=== PATIENT | female | born 1965 ===

== ENCOUNTER 2018-08-23 07:41 | Inpatient (IN) | payer OTHER ==
[2018-08-23] VITALS (18 sets, daily range): BP systolic 127–160; BP diastolic 74–90
[~2018-08-23] VITALS: Ht 168.9 cm; Wt 67.6 kg
[~2018-08-23 07:41] MED LIST: AMLODIPINE BES2.5 MG ORAL; ATORVASTATIN CA20 MG ORAL; Bacitracin 50000 Units Vial ONE; Bupivacaine w/Epi 0.5% 30ml Vial INJ ONE; Gelfoam Size TOPIC ONE; LORAZEPAM1 MG ORAL; PREMARIN0.625 MG ORAL; PROAIR HFA8.5 GM INH; SYNTHROID88 MCG ORAL; Thrombin 5000 units TOPIC ONE; ceFAZolin sod 1 GM in NS 55 ML IVPB ONE
[2018-08-23] MEDS ORDERED: NS Irrig 1000ml ONE (08:00)
[2018-08-23] MEDS ORDERED: Sterile Water Irrig 1000ml IRRIG ONE (08:00)
[2018-08-23] MEDS ORDERED: Midazolam 2mg/2ml Inj ONE (08:54)
[2018-08-23] MEDS ORDERED: Zemuron 50mg/5ml Inj IV ONE ×2 (08:57→10:24)
[2018-08-23] MEDS ORDERED: fentaNYL 100 mcg/2 mL IV ONE (09:07)
[2018-08-23] MEDS ORDERED: Morphine Sulfate 10mg/ml Inj ONE (09:08)
[2018-08-23] MEDS ORDERED: Propofol 200mg/20ml IV ONE (09:11)
[2018-08-23] MEDS ORDERED: Lidocaine 1% MPF 10mg/ml 5ml ONE (09:11)
--- NOTE | 2018-08-23 11:11 | Pre-Procedure Note/Attestation ---
Pre-Procedure Note/Attestation Complete Prior to Procedure Procedure Narrative: c456 acdf Indications for Procedure Pre-Operative Diagnosis: c456 discopathy with radiculopathy Attestation I attest that I discussed the nature of the procedure; its benefits; risks and complications; and alternatives (and the risks and benefits of such alternatives ), prior to the procedure, with the patient (or the patient's legal technical sales representative). I attest that, if there was a reasonable possibility of needing a blood transfusion, the patient (or the patient's legal technical sales representative) was given the [facility] standardized written summary, pursuant to the [place] Blood Safety Act ([place] Health and Safety Code # 1645, as amended). I attest that I re-evaluated the patient just prior to the surgery and that there has been no change in the patient's H&P, except as documented below: Martin Allen MD Aug 23, 2018 11:11
--- NOTE | 2018-08-23 11:12 | Brief Operative Note ---
Immediate Post Operative Note Operative Note Pre-op Diagnosis: c456 discopathy with radiculopathy Procedure: acdf partial corpectomy c456 Post-op Diagnosis: same as pre-op Findings: consistent w/pre-op dx studies Surgeon: pj [employer]or[employer] Consultant: lewis JHA Anesthesiologist: renee Anesthesia: general Specimen: none Complications: none Condition: stable Fluids: 800 Estimated Blood Loss: minimal Drains: none Implant(s) used?: Yes - 4web and rti plate Martin Allen MD Aug 23, 2018 11:12
[2018-08-23] MEDS ORDERED: Metoclopramide 10mg/2ml Inj IVP PRN (11:15)
[2018-08-23] MEDS ORDERED: Milk of Magnesia 30ml Ud ORAL PRN (11:15)
--- NOTE | 2018-08-23 11:25 | Immediate Post-Op Evaluation ---
Immediate Post-Op Evalulation Immediate Post-Op Evalulation Procedure: acdf Date of Evaluation: Aug 23, 2018 Time of Evaluation: 11:25 Nausea: No Vomiting: No Heriberto Dennison MD Aug 23, 2018 11:25
--- NOTE | 2018-08-23 11:26 | Anethesia Preoperative Eval ---
Anesthesia Pre-op PMH/ROS General Date of Evaluation: Aug 23, 2018 Time of Evaluation: 08:00 ASA Score: ASA 2 Mallampati Score Class I : Soft palate, uvula, fauces, pillars visible Class II: Soft palate, uvula, fauces visible Class III: Soft palate, base of uvula visible Class IV: Only hard plate visible Mallampati Classification: Class I Allergies: Coded Allergies: METAXALONE (Verified Allergy, Intermediate, swelling and tongue swells; skin redness, 08/22/18) MORPHINE (Verified Allergy, Intermediate, itching, 08/22/18) TRAMADOL (Verified Allergy, Intermediate, extremely dizzy; vomiting, ) ACETAMINOPHEN (Verified Allergy, Mild, itching, 08/22/18) Cultivated Oat Pollen (Verified Allergy, Mild, sinusitis, 08/22/18) HYDROCODONE (Verified Allergy, Mild, itching, 08/22/18) Patient NPO?: Yes NPO Date: Aug 22, 2018 NPO Time: 1900 Anesthesia Pre-op Phys. Exam Physician Exam Last Vital Signs Date Time Temp Pulse Resp B/P (MAP) Pulse Ox O2 Delivery O2 Flow Rate FiO2 08/23/18 08:39 Room Air 08/23/18 08:37 97.5 109 20 160/85 (110) 99 Gastrointestinal: S/NT/ND Airway Exam Mallampati Score: Class I Heriberto Dennison MD Aug 23, 2018 11:26
[2018-08-23] MEDS: fentaNYL 100 mcg/2 mL IV PRN ×2 (11:49→12:10)
--- NOTE | 2018-08-23 14:36 | Diagnostic Imaging Report ---
INDICATION: Pain, intraoperative TECHNIQUE: Intraoperative imaging Fluoroscopy time: 11.3 seconds Total dose: 0.79075 mGym2 Total number of images: 4 COMPARISON: None FINDINGS: Intraoperative images demonstrate surgical tool projected at level of the C5-6 disc. Subsequent images document anterior fusion and disc spacer placement at C4-5 and C5-6 IMPRESSION: Intraoperative imaging, as described
[2018-08-23] MEDS ORDERED: LORazepam 1mg tab ORAL PRN ×2 (15:15→19:00)
[2018-08-23] MEDS ORDERED: Chloraseptic Spray 20mL Bottle ORAL PRN (15:15)
[2018-08-23] MEDS ORDERED: Hydromorphone 0.5mg/0.5ml inj IVP PRN (15:15)
[2018-08-23] MEDS ORDERED: Albuterol 90mcg Inhaler 8gm INH PRN (15:15)
--- NOTE | 2018-08-23 16:15 | Operative Note - Dictated ---
DATE OF OPERATION: 08/23/2018 SURGEON: Martin Allen MD. RETAIL BANKING MANAGER: Emiliano Figueroa PA-C. ANESTHESIA: Heriberto Dennison M.D. ANESTHESIA TYPE: General endotracheal anesthesia. PREOPERATIVE DIAGNOSES: 1. Cervical discopathy, C4, C5, C6, and C7. 2. Foraminal stenosis maximally at C4-C5, C5-C6. POSTOPERATIVE DIAGNOSES: 1. Cervical discopathy, C4, C5, C6, and C7. 2. Foraminal stenosis maximally at C4-C5, C5-C6. PROCEDURE: 1. Wide and radical diskectomy C4-C5 and C5-C6. 2. Partial corpectomies and uncal vertebrectomies at C4-C5 and C5-C6. 3. Interbody fusion using 4WEB structural cage. 4. Use of Signafuse as well as local bone autograft. 5. Anterior instrumentation and plating using RTI plate C4, C5, and C6. 6. Use of operating microscope. 7. Use of fluoroscopy for localization. 8. Neurodiagnostic monitoring. ESTIMATED BLOOD LOSS: Minimal. FLUIDS: 800. COMPLICATIONS: None. FINDINGS: 1. Severe stenosis C4-C5, C5-C6 with advanced discogenic collapse C4-C5 worse than C5-C6. 2. Stenosis C4-C5, C5-C6 uncovertebral joints and foramen. INDICATIONS: The patient is a very pleasant 52-year-old woman with fairly significant neck pain with radiation both upper extremities. She radiographically did have findings consistent with pathology at C4, C5, C6, and C7. However, after detailed discussion, it was felt that the primary pain generators are C4-C5, C5-C6 and it was elected to only address these two. She was explained that there may be a need for reoperation in the future. The patient does understand. RISKS NOTE: The patient was explained in detail risks, benefits of surgery to include, but not be limited to those of bleeding, infection, damage to nerves, vessels, tendons, anesthetic risk, allergic reaction, aspiration, possibly , possible need for reoperation, pseudoarthrosis was discussed. The patient elected to proceed. OPERATIVE PROCEDURE IN DETAIL: The patient was taken to the operating suite. After general endotracheal anesthesia was obtained, Pan catheter was placed. She was positioned supine onto a radiolucent table. A bolster placed under the neck. The chin was strapped in position. Fluoroscope was brought in place and level at C5 was marked with a needle. At this point, the skin was prepped and draped in usual sterile fashion. A transverse incision was performed after the incision site was infiltrated with lidocaine/Marcaine with epinephrine. The incision was sharply carried out through a skin crease anteriorly on the right side and taken down through the subcutaneous. The platysma was identified and it was transected perpendicular to the fibers. The interval medial to the sternocleidomastoid was identified and blunt dissection was carried out medial to the carotid sheath to the area of the prevertebral fascia. Blunt dissection was used primarily. At this point, retractors were brought into place. The longus coli was identified. A needle was placed at C5-C6 and the level was confirmed radiographically using fluoroscope. At this point, the longus coli was elevated off of the C4-C5, C5-C6 levels. It was elected to first perform the C4-C5 level. Omid posts were placed at C4 and C5. Anterior osteophytes were removed with a large rongeur. At this point, the disk was mobilized using Bovie and gentle disc distraction was obtained using the [place] posts as well as a trial interbody spacer. At this point, endplate preparation was performed. This was exceedingly collapsed with degeneration. Posterior spurs and osteophytes were identified. High-speed drill was used to perform partial uncal vertebrectomy as well as corpectomy. At this point, the high-speed drill, Kerrison punches, and Microsect curette were mobilized to remove the posterior longitudinal ligament as well as the posterior osteophytes. Partial corpectomy was performed on the left at C4-C5. A subtotal uncal vertebrectomy was performed on the right side. The appropriate sized small 4WEB cage was chosen. It was centrally packed with Signafuse and inserted after endplate preparation was achieved. Additional autograft and Signafuse was then placed into the lateral gutters. The Omid posts was removed from C4 and placed into C6. In an identical fashion, wide and radical diskectomy, osteophyte resection, and uncal vertebrectomies were performed. A 6 mm interbody device was placed at the C5-C6 where as a 5 mm was placed at C4-C5. Once satisfied with the interbody cages and the fusion, copious irrigation was achieved. The appropriate sized 26 mm plate was contoured, applied, and the center 2 screws were drilled into place using self-drilling screws. Fluoroscopically positioning was noted to be ideal. The screws into C4 and into C6 were serially placed as well achieving excellent fixation. AP and lateral projections demonstrated ideal hardware positioning. At this time, the decision was made to close. Meticulous hemostasis was achieved. Final AP and lateral projections demonstrated hardware in good position. Bone graft in good position. At this point, decision was made to close the platysma was repaired using 3-0 Vicryl, subcutaneous closure using 4-0 Vicryl. Dermabond was applied. Sterile dressing was applied. The patient was subsequently awakened, extubated, and transferred to recovery room in stable condition. Sponge and needle counts were correct. Complications none. Martin Allen M.D. DR: DAVID JOB#: [id number] CC:
[2018-08-23] MEDS: ceFAZolin sod 1 GM in D5W 55 ML IV SCH (16:44)
[2018-08-23] MEDS: Docusate Sod/Senna tab ORAL SCH (16:44)
[2018-08-23] MEDS ORDERED: Tylenol #3 tab (300mg/30mg) ORAL SCH (19:15)
[2018-08-23] MEDS ORDERED: Atorvastatin 20mg tab ORAL SCH (21:00)
--- NOTE | 2018-08-23 21:30 | Consultation ---
DATE OF CONSULTATION: 08/23/2018 CONSULTING PHYSICIAN: José Luis Ku M.D. REFERRING PHYSICIAN: Martin Allen M.D. REASON FOR CONSULTATION: Acute pain consult. HISTORY OF PRESENT ILLNESS: Dear Dr. Martin Allen, Thank you kindly for consulting me to evaluate and render an opinion as to how to proceed in the management of the patient's acute postoperative cervical spine pain after multilevel cervical spine instrumentation surgery today. The patient is a very pleasant 52-year-old, woman, who injured her neck in a work-related injury. Today, she required multiple level cervical spine instrumentation surgery, complains of significant discomfort postoperatively. You consulted me to help with this patient's pain control. I saw the patient at bedside. I performed detailed history and physical examination. I discussed the case with yourself, Dr. Diamond along with the nurse RN, Mirella. I spent over 75 minutes in consultation with an additional 30 minutes in medical record review. I reviewed multiple records of the patient's hospitalization including utilization review and surgical authorization by the insurance carrier, [employer] authorizing surgery as certified. Multiple preop records reviewed from Dr. Terry Whitney January 13, 2018 including laboratory studies, 12-lead EKG. I reviewed multiple records from yourself, Dr. Diamond including primary treating physician's progress report, dated March 30, 2018. Multiple records were reviewed from today's date of surgery at [facility], August 23, 2018. After discussion with the hospital pharmacist, Karla, I also reviewed the anesthesia record, pre and post anesthesia evaluation record. I reviewed consent for surgical treatment, consent for anesthesia, consent for blood products, medication administration record, medication reconciliation order form, PACU record, PACU orders, postoperative spine surgical orders, postop surgery report by Dr. Allen, implant log. Guidelines for DVT prophylaxis, guidelines for prophylactic antibiotics, initial nursing assessment, 24 hour medical and surgical flow sheet, surgical invasive procedure check list, perioperative nursing plan of care. PAST MEDICAL HISTORY: 1. Acute postoperative cervical spine pain, status post multiple level cervical spine instrumentation surgery, Dr. Martin Allen July 2018. 2. Work-related injury. 3. Multiple drug intolerances. 4. Asthma. 5. Hypertension. 6. Hypercholesterolemia. 7. Hypothyroidism. 8. Mild anxiety. MEDICATIONS: At home, albuterol, Norvasc, Zocor, hormone replacement therapy, Synthroid, lorazepam 1 mg p.r.n., used rarely per the patient admission. ALLERGIES: Multiple drug allergies include itching from hydrocodone, morphine, tramadol and Percocet. Except for the itching, these medications have been effective for pain. Further allergies include Skelaxin. SOCIAL HISTORY: Negative. REVIEW OF SYSTEMS: Per Dr. Whitney. PHYSICAL EXAMINATION: VITAL SIGNS: Age 52. Height 5 feet and 5 inches. Weight 154 pounds. Body mass index 26. Vital signs, afebrile. Pulse 86, respirations 18, blood pressure 142/90, and oxygen saturation 99% on supplemental oxygen. Pain level 7/10 on the visual analog pain scale. HEENT: Neck dressing appears clean and dry. Significant discomfort with range of motion. The patient appears nontoxic. The patient is breathing comfortably and shows no accessory muscle use or shortness of breath symptoms. The patient appears to be swallowing adequately with normal phonation. She is moving all extremities x4. A 5/5 dorsiflexion and 5/5 plantar flexion in bilateral extremities. Detailed neurologic exam per Dr. Allen. HEART: Regular rate and rhythm. ABDOMEN: Soft. BREASTS: Deferred. GENITOURINARY: Deferred. DIAGNOSTIC TESTING: Shows 12-lead EKG normal sinus rhythm, ventricular rate 82, dated July 2018. Pulmonary function testing shows normal spirometry. Preoperative chest x-ray shows no acute cardiopulmonary disease dated August 15, 2018. MRI cervical spine, February 14, 2018 shows 3 mm broad-based posterior disk osteophyte complexes, anterior cord C4-C5, C5-C6 and C6-C7 with mild to moderate spinal stenosis. PREOPERATIVE LABORATORY STUDIES: May 15, 2018, shows glucose 94, sodium 142, potassium 4.6, chloride 103, bicarb 31, BUN 9, creatinine 0.7, calcium 9.5. Total protein 7.7 and albumin 4.7. AST 22, ALT 23, alkaline phosphatase 79, total bilirubin 0.6. TSH elevated at 11.3, normal range less than 4.6. White count 4, hematocrit 41, platelets 266. INR 1.0 and PTT 27. IMPRESSION: 1. Acute postoperative cervical spine pain, status post multiple level cervical spine instrumentation surgery Dr. Martin Allen July 2018. 2. Work-related injury. 3. Multiple drug intolerances. 4. Asthma. 5. Hypertension. 6. Hypercholesterolemia. 7. Hypothyroidism. 8. Mild anxiety. TREATMENT RECOMMENDATIONS: After taking a detailed medication history at the patient bedside, I discussed with the hospital pharmacist and the nurse that we will trial her on Tylenol No. 3 with Codeine this evening with food to test for tolerability and efficacy. The patient has so many medication allergies which are primarily itching adverse side effects. The patient does state that she does take Vicodin from [id number] and tolerates the itching, sometimes with Benadryl. I will dose the patient with IV Dilaudid 0.5 milligram which was well tolerated with only mild itching. I will continue this dose of 0.5 mg intravenous Dilaudid every three hours p.r.n. for severe pain. If the Tylenol No. 3 with codeine is effective without significant adverse side effects, we will continue every 4 hours p.r.n. for mild pain. The patient did accept using [place] 10/325 tablets which I will use for moderate pain as needed. I have made available dose of Benadryl 25 mg orally every 6 hours to help reduce any itching symptoms. The patient is comfortable with this strategy. I will empirically place the patient on Pepcid b.i.d. to help for any gastrointestinal ulcer prophylaxis. The patient has had some nausea symptoms postoperatively. I have added Zofran 4 mg intravenously every 4 hours p.r.n. p.r.n. as an antiemetic. In case of any GERD symptoms, I have ordered Mylanta 30 mL q.6 hours as needed. The patient does have a prescription and a supply of Ativan for home usage but she states that she uses this medication very rarely, may be a couple of times per year. I will continue this dose of 1 mg orally every 8 hours p.r.n. for anxiety or insomnia, since it was well tolerated. I did counseled the patient to wait at least 60 minutes between doses of sedating agents including Benadryl, Ativan, and any of the opioid narcotics, to avoid any potentiation of respiratory depression. The patient understood. I have asked nursing to place Chloraseptic spray bottle at the bedside to help with sore throat complaints. I will restart her home medications for hypercholesterolemia and thyroid disease while simplifying her analgesic plan to reduce the risk of medication administration errors. I have left a prescription for outpatient usage for the patient's selected Tylenol No. 3 with codeine or [place] depending on her preference after her hospital trials have completed. I did encourage aggressive use of incentive spirometer and I did demonstrate proper usage to encourage good pulmonary toilet and help reduce the risk of postoperative pneumonia and atelectasis. I will defer DVT prophylaxis to the surgeon. José Luis Ku M.D. DR: Delta JOB#: [id number] CC:
[2018-08-23] MEDS ORDERED: Tylenol #3 tab (300mg/30mg) ORAL PRN (23:00)
[2018-08-24] MEDS: ceFAZolin sod 1 GM in D5W 55 ML IV SCH ×2 (00:38→08:25)
[2018-08-24 00:42] VITALS: BP 105/71
[2018-08-24 04:00] VITALS: BP 116/74
[2018-08-24] MEDS: HYDROcodone/Acetamin 10/325 tab ORAL PRN ×3 (05:08→13:03)
[2018-08-24 08:00] VITALS: BP 119/67
[2018-08-24] MEDS: Docusate Sod/Senna tab ORAL SCH (08:25)
--- NOTE | 2018-08-24 08:35 | Orthopedic Spine Progress Note ---
Ortho Spine - Progress Note Subjective Symptoms: c/o post-op neck pain, improved - as compared to pre-op Objective Vital Signs: Last 24 Hour Vital Signs Date Time Temp Pulse Resp B/P (MAP) Pulse Ox O2 Delivery O2 Flow Rate FiO2 08/24/18 08:08 Room Air 08/24/18 08:00 98.4 72 19 119/67 (84) 95 08/24/18 04:00 98.1 71 16 116/74 (88) 99 08/24/18 00:42 98.3 73 17 105/71 (82) 100 08/23/18 21:00 Nasal Cannula 2.0 08/23/18 20:00 98.1 81 18 138/87 (104) 100 08/23/18 16:30 86 142/90 08/23/18 16:00 97.5 86 18 142/90 (107) 99 08/23/18 13:45 96.6 82 18 140/79 (99) 100 08/23/18 13:15 97.5 85 18 140/87 (104) 99 08/23/18 13:10 Nasal Cannula 2.0 08/23/18 12:55 97.4 82 14 130/80 100 Nasal Cannula 3 08/23/18 12:45 84 14 131/74 100 Nasal Cannula 3 08/23/18 12:43 97.3 08/23/18 12:35 91 15 155/81 100 Nasal Cannula 3 08/23/18 12:25 84 14 143/79 100 Nasal Cannula 3 08/23/18 12:15 79 15 138/79 100 Nasal Cannula 3 08/23/18 12:05 83 15 142/80 100 Nasal Cannula 3 08/23/18 11:55 84 15 136/75 100 Nasal Cannula 3 08/23/18 11:45 104 19 146/88 98 Nasal Cannula 3 08/23/18 11:40 100 17 134/75 100 Nasal Cannula 3 08/23/18 11:35 101 18 140/87 100 Simple Mask 6 08/23/18 11:30 103 22 149/88 100 Simple Mask 6 08/23/18 11:25 90 15 129/77 100 Simple Mask 6 08/23/18 11:20 97.3 93 16 127/87 100 Simple Mask 6 08/23/18 08:39 Room Air 08/23/18 08:37 97.5 109 20 160/85 (110) 99 I&O: Intake and Output 08/23/18 08/24/18 19:00 07:00 Intake Total 1505 ml 1450 ml Output Total 720 ml Balance 785 ml 1450 ml Intake Oral 400 ml 350 ml IV Total 1105 ml 1100 ml Output Urine Total 700 ml Estimated Blood Loss 20 ml # Voids 3 3 Wound: clean, intact Drains: none Neuro Status: normal Assessment Procedure Performed: acdf partial corpectomy c456 Plan Plan: PT, pain management, discharge to home Martin Allen MD Aug 24, 2018 08:34
--- NOTE | 2018-08-24 09:26 | 48 Hour Post Anesthesia Eval ---
Post Anesthesia Evaluation Procedure: acdf Date of Evaluation: Aug 24, 2018 Airway: patent Nausea: No Vomiting: No Pain Intensity: 2 Hydration Status: adequate Cardiopulmonary Status: at baseline Mental Status/LOC: patient returned to baseline Post-Anesthesia Complications: 0 Follow-up care needed: N/A - further care as per primary team Frieda Erickson MD Aug 24, 2018 09:26
[2018-08-24] MEDS ORDERED: ACETAMINOPHEN-1 EAC1 ORAL (09:33)
[2018-08-24] MEDS ORDERED: NORCO 10-325 T1 EACH ORAL ×2 (09:34→09:35)
[2018-08-24 12:00] VITALS: BP 111/63
--- NOTE | 2018-08-24 18:45 | Progress Note ---
DATE: 08/24/2018 ACUTE PAIN MANAGEMENT PHYSICIAN PROGRESS NOTE MEDICATIONS: Medication administration record reviewed. Medications include Ritika-Colace, Chloraseptic, Zofran, milk of magnesia, Ativan, Synthroid, Dilaudid, [place], Pepcid, Benadryl, Catapres, Lipitor, Norvasc, albuterol, Mylanta, Tylenol No. 3 with codeine, and plain Tylenol. LABORATORY STUDIES: No interval laboratory studies. VITAL SIGNS: Within normal limits. Afebrile, pulse 69, respirations 20, blood pressure 111/63, and oxygen saturation 97% on room air. I saw the patient at the bedside with her after discussion with the nurse RN, Charisse and surgeon, Dr. Allen along with the hospital pharmacist, Karla. The patient has been doing quite well postoperatively. Her neck dressing is clean and dry. She has been moving in and out of bed and voiding urine without problem. She appears neurologically grossly intact. Dr. Allen evaluated her earlier this morning and was pleased with her surgical outcome. The patient is swallowing and phonating within normal limits. She has no nausea symptoms. She did trial the Tylenol No. 3 with codeine yesterday, it was well tolerated although the analgesic efficacy was inadequate. She did use doses of hydrocodone, which did work as a stronger and more potent opioid analgesic. She will refill that prescription at a local pharmacy, as I left her a prescription. If she does have itching complaints, I did encourage her to use [id number] Benadryl, but I did recreation counselor the patient to wait at least sixty minutes between doses of any sedating medications to avoid oversedation. The patient also has a supply of lorazepam at home, which she uses rarely, but I did suggest this medication also may complement her pain control over the next couple days. Once again, I did reinforce that she needs to space-out any sedating medications including Benadryl, , and hydrocodone to avoid potentiation of respiratory depression. The patient and her understood. The patient has been advancing her diet without troubles. The is present and will be providing excellent support at home for activities of daily living. With normal vital signs, I see no contraindication home at this time. José Luis Ku M.D. DR: LUDY JOB#: [id number] CC:
--- NOTE | 2018-08-25 09:26 | Discharge Summary ---
Discharge Summary Discharge Summary _ DATE OF ADMISSION: 08/23/2018 DATE OF DISCHARGE: 08/24/2018 DISCHARGED BY: Dr. Martin Allen LADLE WATCHER: Dr. José Luis Ku BRIEF HOSPITAL COURSE: Patient is a 52-year-old female, who injured her neck in a work- related injury. She had significant neck pain with radiation to both upper extremities. Radiographically, she had findings consistent with pathology at C4 , C5, C6 and C7. After detailed discussion, it was felt that the primary pain generators were C4-C5 and C5-C6. Patient was admitted on 08/23/2018 and underwent wide and radical discectomy C4-C5 and C5-C6. She tolerated procedure well. Surgery was uneventful. Post-operatively, patient was admitted for post- op care. She was placed on SCDs for DVT prophylaxis and was encouraged use of incentive spirometer. She was seen by dip painter. She was given Dilaudid and Tylenol #3. [place] for moderate pain, with standby Benadryl prn itching. She was seen by PT. Diet was advanced. Incision was clean, dry and intact. Patient was ambulating well with good pain control and tolerating diet. Patient was eventually cleared for discharge home. PREOPERATIVE DIAGNOSES: 1. Cervical discopathy, C4, C5, C6, and C7. 2. Foraminal stenosis maximally at C4-C5, C5-C6. POSTOPERATIVE DIAGNOSES: 1. Cervical discopathy, C4, C5, C6, and C7. 2. Foraminal stenosis maximally at C4-C5, C5-C6. PROCEDURE: 1. Wide and radical diskectomy C4-C5 and C5-C6. 2. Partial corpectomies and uncal vertebrectomies at C4-C5 and C5-C6. 3. Interbody fusion using 4WEB structural cage. 4. Use of Signafuse as well as local bone autograft. 5. Anterior instrumentation and plating using RTI plate C4, C5, and C6. 6. Use of operating microscope. 7. Use of fluoroscopy for localization. 8. Neurodiagnostic monitoring. FINDINGS: 1. Severe stenosis C4-C5, C5-C6 with advanced discogenic collapse C4-C5 worse than C5-C6. 2. Stenosis C4-C5, C5-C6 uncovertebral joints and foramen. DISCHARGE DISPOSITION: Patient was discharged home. DISHARGE MEDICATIONS: Refer to Medication Reconciliation Sheet. DISCHARGE INSTRUCTIONS: Post-op instructions given. Follow-up in a week. I have been assigned to complete a DC summary on this account, I was not involved with the patient's management. Marce Gandhi NP Aug 25, 2018 09:26
== END 2018-08-24 13:45 | disposition home or self-care (01) | DRG 473 ==
LOC: SDSOVERFLO 07:41 → 3E 13:43
PROC: 0RT30ZZ Resection of Cervical Vertebral Disc, Open Approach (ICD-10-PCS; principal; 2018-08-23 08:30)
PROC: 0RG20A0 Fusion of 2 or more Cervical Vertebral Joints with Interbody Fusion Device, Anterior Approach, Anterior Column, Open Approach (ICD-10-PCS; principal; 2018-08-23 08:30)
DX: M50.121 Cervical disc disorder at C4-C5 level with radiculopathy (principal); M48.02 Spinal stenosis, cervical region; E03.9 Hypothyroidism, unspecified; I10 Essential (primary) hypertension; G89.18 Other acute postprocedural pain; J45.909 Unspecified asthma, uncomplicated; E78.00 Pure hypercholesterolemia, unspecified; F41.9 Anxiety disorder, unspecified
CPT/HCPCS: 36415; 72040; 76001; 86850; 86900; 86901; 87081; 94003; 94150; C9399; J2250; J2405